=== PATIENT | male | born 1945 | race Caucasian/White ===

== ENCOUNTER → 2017-06-01 | Outpatient (CLI) | payer MEDICARE, OTHER | END | disposition home or self-care (01) | LOC: GMAH 10:10 | PROVIDERS: ATTEND Family Medicine | DX: E78.2 Mixed hyperlipidemia (principal); Z12.5 Encounter for screening for malignant neoplasm of prostate | CPT/HCPCS: 84443; 84550; G0103 ==

== ENCOUNTER → 2018-05-31 | Outpatient (CLI) | payer MEDICARE, OTHER | LOC: GMAH 14:25 | PROVIDERS: ATTEND Family Medicine | DX: E78.2 Mixed hyperlipidemia (principal) ==

== ENCOUNTER → 2018-06-03 | Outpatient (CLI) | payer MEDICARE, OTHER | LOC: GMAM 12:59 | PROVIDERS: ATTEND Family Medicine | DX: Z12.5 Encounter for screening for malignant neoplasm of prostate (principal) ==

== ENCOUNTER → 2019-06-09 | Outpatient (CLI) | payer MEDICARE, OTHER | LOC: GMA MATASK 10:32 | PROVIDERS: ATTEND Family Medicine | DX: E78.2 Mixed hyperlipidemia (principal); Z12.5 Encounter for screening for malignant neoplasm of prostate | CPT/HCPCS: 84443; 84550; G0103 ==

== ENCOUNTER → 2019-07-12 | Outpatient (CLI) | payer MEDICARE, OTHER ==
--- NOTE | 2019-07-12 11:53 | US ---
EXAM DESCRIPTION: Abdomen,Complete: Ultrasound. CLINICAL HISTORY: ATHEROSCLEROSIS OF AORTA COMPARISON: None Available. TECHNIQUE: Transabdominal scanning: grayscale and Doppler modes. FINDINGS: Gallbladder: Normal size and echogenicity with no intraluminal stones or sludge. Normal caliber of the wall 2.9 cm with no fluid. Nontender with transducer pressure. Common bile duct: Diameter 4.8 mm is normal Range Liver: Right lobe long axis is 14.4 cm. Normal echogenicity except for a 1.7 x 1.6 x 1.4 cm anechoic cyst in the left lobe, with circumscribed margins and posterior acoustic enhancement. Nonvascular. Physiologic appearance of the vascularity with proximal portal vein 1.1 cm. No focal lesions or duct dilation. Smooth capsule with no ascites. Pancreas: Negative.. Abdominal aorta: 2.4 cm proximally, 2.0 cm mid segment and 1.2 cm distally. Proximal to the bifurcation is a region of hypoechoic posterior intimal wall thickening with a small distal flap that moves on real-time cine imaging. No aneurysm is noted. IVC: visualized; normal caliber. Spleen normal echogenicity; long axis measurement is 11.2 cm. Right kidney: 11.3 cm long axis with normal cortical thickness and echogenicity. Capsule and a lobulated. No echogenic stones, no hydronephrosis, no perirenal fluid. Left kidney: 10.6 cm long axis. Increased echogenicity of the cortex and mid renal thickness 11 mm. No echogenic stones hydronephrosis or perirenal fluid. IMPRESSION: 1. Normal caliber of abdominal aorta. Focal intimal wall thickening above the bifurcation on the posterior wall with small free edge flap. Not interpreted to be clinically significant. 2. Age-related changes in the bilateral kidneys. 3. Probable cyst in the left lobe of the liver with circumscribed forrest, decreased echoes, nonvascular, and posterior acoustic enhancement. 4. Gallbladder, pancreas, spleen, and common bile duct are unremarkable. Electronically signed by: Russ Godoy MD 07/12/2019 11:52 AM CDT
== END ==
LOC: US 09:28
PROVIDERS: ATTEND Family Medicine
DX: I70.0 Atherosclerosis of aorta (principal); K76.9 Liver disease, unspecified

== ENCOUNTER → 2020-06-12 | Outpatient (CLI) | payer MEDICARE, OTHER | LOC: GMA MATASK 14:50 | PROVIDERS: ATTEND Family Medicine | DX: E78.2 Mixed hyperlipidemia (principal); Z12.5 Encounter for screening for malignant neoplasm of prostate | CPT/HCPCS: 84443; 84550; G0103 ==